=== PATIENT | male | born 1995 | race Caucasian/White ===

== ENCOUNTER → 2020-07-20 18:32 | Outpatient (CLI) | payer OTHER, SELFPAY ==
[2020-01-20 15:01] VITALS: BMI 26.6
== END ==
PROVIDERS: PCP Family Medicine; Referring Provider Physician Assistant; Visit Provider Physician Assistant
DX: Z20.828 Contact with and (suspected) exposure to other viral communicable diseases (principal)
CPT/HCPCS: 87635; C9803; U0003